=== PATIENT | female | born 1985 | race Caucasian/White ===

== ENCOUNTER → 2017-02-04 | Outpatient (CLI) | payer OTHER ==
--- NOTE | 2017-02-04 19:34 | MR ---
EXAMINATION TYPE: MR lumbar spine wo con DATE OF EXAM: 02/04/2017 COMPARISON: NONE HISTORY: Pain LOW BACK SINCE 2010 TECHNIQUE: T1 and T2 axial and sagittal images of the lumbar spine are submitted. FINDINGS: There is no abnormal signal seen within the visualized spinal cord or paraspinal soft tissu es. At L1-2 there is no degenerative disc disease, disc herniation, or canal stenosis. No foraminal encro achment. At L2-3 there is no degenerative disc disease, disc herniation, or canal stenosis. No foraminal encro achment. At L3-4 there is no degenerative disc disease, disc herniation, or canal stenosis. No foraminal encro achment. At L4-5 there is 7 mm synovial cyst external to the spinal canal related to left facet joint with mod erate facet arthropathy and ligamentum flavum hypertrophy. Broad-based central disc protrusion result s in moderate effacement of thecal sac and mild central stenosis. Mild bilateral foraminal encroachme nt. At L5-S1 there is disc desiccation and facet arthropathy with a focal left paracentral disc broad-bas ed herniation resulting in moderate anterior thecal sac compression. Neural foramina remain patent. IMPRESSION: 1. Focal broad-based left paracentral disc herniation L5-S1 with moderate thecal sac compression but no significant foraminal encroachment. 2. Broad-based central disc protrusion or small herniation L4-L5 with moderate effacement of thecal s ac. Hypertrophic change of the ligamentum flavum and facets result in mild central stenosis. 3. Small 7 mm synovial cyst left facet joint L4-L5 external to the spinal canal.
== END | disposition home or self-care (01) ==
LOC: RADMRIMAIN 17:58
DX: M48.061 Spinal stenosis, lumbar region without neurogenic claudication (principal); M51.17 Intervertebral disc disorders with radiculopathy, lumbosacral region; M24.28 Disorder of ligament, vertebrae; M71.38 Other bursal cyst, other site
CPT/HCPCS: 72148

== ENCOUNTER 2023-03-09 17:46 | Emergency (ER) | payer OTHER ==
[2023-03-09 18:06] VITALS: RESP 18
[2023-03-09] MEDS ORDERED: SULFAMETH-TMP DS STARTER PACK 2 TAB BTL PO STA (18:22)
[2023-03-09] MEDS ORDERED: ACET/COD 300 MG/30 MG STARTER PACK 6 TAB BTL PO STA (18:22)
[2023-03-09] MEDS ORDERED: CEPHALEXIN 500MG STARTER PACK 4 CAP BTL PO STA (18:22)
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
[2023-03-09 18:51] VITALS: BP 135/84; PULSE 78; TEMP 98.2
== END 2023-03-09 18:50 | disposition home or self-care (01) ==
LOC: EC 17:46
DX: L02.211 Cutaneous abscess of abdominal wall (principal); F12.90 Cannabis use, unspecified, uncomplicated; F17.200 Nicotine dependence, unspecified, uncomplicated; Z90.49 Acquired absence of other specified parts of digestive tract
CPT/HCPCS: 99283

== ENCOUNTER 2023-05-18 18:04 | Emergency (ER) | payer OTHER ==
[2023-05-18 19:44] LABS: Appearance,Urine Cloudy (Clear); Bacteria,Urine Few /hpf; Bilirubin,Urine Negative (Negative); Blood,Urine Trace (Negative); Color,Urine Colorless; Glucose,Urine (UA) Negative (Negative); Ketones,Urine Negative (Negative); Leukocyte Esterase,Urine Large (Negative); Mucus,Urine Rare /hpf; Nitrite,Urine Positive (Negative); Protein,Urine Trace (Negative); RBC,Urine 15 /hpf (0-5); Specific Gravity,Urine 1.015 (1.001-1.035); Squamous Epithelial Cell,Urine 32 /hpf (0-4); Urobilinogen,Urine <2.0 mg/dL (<2.0); WBC,Urine 127 /hpf (0-5)
[2023-05-18] MEDS ORDERED: ACETAMINOPHEN TAB 500 MG TAB PO STA (21:02)
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
--- NOTE | 2023-05-18 21:58 | US ---
EXAMINATION TYPE: US OB >= 14 wk twins DATE OF EXAM: 05/18/2023 COMPARISON: NONE CLINICAL INDICATION: Female, 37 years old with history of 17 wks . suprapubic pain; 17 weeks pg. Diagnosed with a UTI today GESTATIONAL AGE / DATING Physician Established: (17 weeks/2 days) EDC: 10/24/23 Dates by First Scan: No prev. Dates by Current Scan for Baby A: (17 weeks/2 days) EDC: 10/24/23 Dates by Current Scan for Baby B: (17 weeks/2 days) EDC: 10/24/23 GENERAL TWIN SURVEY TWIN A LOCATION in regards to maternal abd: Breech TWIN B LOCATION in regards to maternal abd: Breech MEMBRANE SEEN: Yes CERVICAL LENGTH (transabdominal; norm > 3.0cm): 3.4 cm MATERNAL WALL MEASUREMENT: 3.9 cm from skin to anterior uterine wall (if exam limited due to body hab itus). TWIN A: SURVEY/BIOMETRY PLACENTA: Anterior PREVIA: No previa KAVON:? 12.7 cm?Normal PRESENTATION: Breech LIE: Oblique BPD: 3.7 cm 17 weeks / 3 days HC: 13.97 cm 17 weeks / 2 days AC: 11.6 cm 17 weeks / 2 days FL: 2.36 cm 17 weeks / 1 days ESTIMATED WEIGHT IN GRAMS: 187.1 grams ESTIMATED WEIGHT IN LBS/OZS: 0 lbs. 7 oz. WEIGHT PERCENTAGE BASED ON ESTABLISHED DATES: 41.6% HC/AC: 1.21 Normal FL/AC: 20.3 Normal HEART RATE: 174 bpm RHYTHM: Normal TWIN B: SURVEY/BIOMETRY PRESENTATION: Breech LIE: Longitudinal BPD: 3.76 cm 17 weeks / 3 days HC: 13.75 cm 17 weeks / 1 days AC: 11.4 cm 17 weeks / 1 days FL: 2.44 cm 17 weeks / 3 days ESTIMATED WEIGHT IN GRAMS: 188.2 grams ESTIMATED WEIGHT IN LBS/OZS: 0 lbs. 7 oz. WEIGHT PERCENTAGE BASED ON ESTABLISHED DATES: 43.5% HC/AC: 1.21 Normal FL/AC: 21.4 Normal HEART RATE: 155 bpm RHYTHM: Normal IMPRESSION: Single live intrauterine gestation with ultrasound age 17 weeks 3 days. Additional information as susanna cribed above.
[2023-05-18] MEDS ORDERED: CEPHALEXIN 500MG STARTER PACK 4 CAP BTL PO STA (22:38)
[2023-05-18 23:01] VITALS: BP 154/76; PULSE 84; RESP 18; TEMP 99.8
== END 2023-05-18 22:54 | disposition home or self-care (01) ==
LOC: EC 18:04
DX: O23.42 Unspecified infection of urinary tract in pregnancy, second trimester (principal); N39.0 Urinary tract infection, site not specified; O99.332 Smoking (tobacco) complicating pregnancy, second trimester; F17.290 Nicotine dependence, other tobacco product, uncomplicated; O99.322 Drug use complicating pregnancy, second trimester; F12.90 Cannabis use, unspecified, uncomplicated; Z3A.17 17 weeks gestation of pregnancy; Z20.822 Contact with and (suspected) exposure to COVID-19; Z90.49 Acquired absence of other specified parts of digestive tract
CPT/HCPCS: 76805; 76810; 81001; 87636; 99284

== ENCOUNTER 2023-07-30 18:55 | Outpatient (CLI) | payer OTHER ==
[2023-07-30] MEDS: LABETALOL 200 MG TAB PO STA (19:48)
[2023-07-30 19:50] LABS: Appearance,Urine Cloudy (Clear); Bilirubin,Urine Negative (Negative); Blood,Urine Negative (Negative); Color,Urine Colorless; Glucose,Urine (UA) Negative (Negative); Ketones,Urine Negative (Negative); Leukocyte Esterase,Urine Large (Negative); Mucus,Urine Rare /hpf; Nitrite,Urine Negative (Negative); PH, Urine 6.5 (5.0-8.0); Protein,Urine Trace (Negative); RBC,Urine 7 /hpf (0-5); Specific Gravity,Urine 1.017 (1.001-1.035); Squamous Epithelial Cell,Urine 7 /hpf (0-4); Urobilinogen,Urine <2.0 mg/dL (<2.0); WBC,Urine 33 /hpf (0-5)
[2023-07-30 20:12] LABS: Basophils % (A) 0 %; Eosinophils # (A) 0.3 k/uL (0-0.7); Eosinophils % (A) 3 %; HCT 29.5 % (34.0-46.0); HGB 9.5 gm/dL (11.4-16.0); Lymphocytes # (A) 1.4 k/uL (1.0-4.8); Lymphocytes % (A) 13 %; MCH 30.6 pg (25.0-35.0); MCHC 32.1 g/dL (31.0-37.0); MCV 95.4 fL (80.0-100.0); Mean Platelet Volume 7.5; Monocytes # (A) 0.5 k/uL (0-1.0); Monocytes % (A) 5 %; Neutrophils # (A) 8.2 k/uL (1.3-7.7); Neutrophils % (A) 77 %; Platelet Count 325 k/uL (150-450); RDW 14.9 % (11.5-15.5); WBC 10.7 k/uL (3.8-10.6)
[2023-07-30 20:25] LABS: ALT 11 U/L (4-34); AST 17 U/L (14-36); African American GFR (CKD) >90 (>60 ml/min/1.73 sqM); Blood Urea Nitrogen 4 mg/dL (7-17); LDH 158 U/L (120-246); Non-African American GFR(CKD) >90 (>60 ml/min/1.73 sqM)
[2023-07-30 20:42] LABS: Creatinine,Urine Random 74.2 mg/dL; Protein/Creatinine Ratio,Urine 0.553
[2023-07-30 20:44] LABS: Creatinine,Urine Random 73.7 mg/dL
[2023-07-30 21:40] VITALS: BP 185/84; PULSE 102; RESP 18; TEMP 97.9
--- NOTE | 2023-08-01 08:13 | P.MSEPDOC ---
Presenting Problems - Arrival Data Date of Arrival on Unit: 07/30/23 Time of Arrival on Unit: 18:55 Mode of Transport: Ambulatory - Complaint OB-Reason for Admission/Chief Complaint: PIH Comment: pt presents to triage for nausea, fatigue, swelling in her hands, fever, and elevated bp's at home of 189/101, pt has twin gest , last she had preeclampsia, was induced at 37 weeks Medical History - Information : 4 Para: 2 Term: 2 : 0 Abortions: Spontaneous or Elective: 1 Number of Living Children: 2 - Gestational Age Gestational Age by ILSA (wks/days): 27 Weeks and 6 Days - History Complications: Preeclampsia, Multiple Review of Systems - Review of Systems Constitutional: No problems Breast: No problems ENT: No problems Cardiovascular: No problems Respiratory: No problems Gastrointestinal: No problems Genitourinary: No problems Musculoskeletal: No problems Neurological: No problems Skin: No problems Vital Signs - Temperature Temperature: 97.9 F Temperature Source: Oral - Pulse Pulse Oximetery Pulse Rate: 102 Pulse Assessment Method: Pulse Oximetry - Respirations Respiratory Rate: 18 Oxygen Delivery Method: Room Air O2 Sat by Pulse Oximetry: 99 - Blood Pressure Right Arm Blood Pressure: 185/84 Blood Pressure Mean: 117 Blood Pressure Source: Automatic Cuff Medical Screen Scoring - Cervical Exam Membranes: Intact - Assessment - Baby A Baseline FHR: 155 - Assessment - Baby B Baseline FHR: 150 Physician Notification - Physician Notified Physician Notified Date: 07/30/23 Physician Notified Time: 19:24 Physician: Jenny Jiménez New Order Received: Yes - Notification Comment Comment: Verbal orders recieved at this time to send urine and PIH labs, give 200mg labetolol now and call with lab results. Maternal Triage Index - Maternal Triage Index Presenting for scheduled procedure w/no complaint: No - Stat/Priority 1 Stat Priority 1: Yes Provider Notified: Jenny Jiménez Provider Notified Time: 19:24 Criteria Met for Priority 1: pt presents to triage for nausea, fatigue, swelling in her hands, fever, and elevated bp's at home of 189/101, pt has twin gest , last she had preeclampsia, was induced at [address] Jiménez called, report given. RN reported on maternal and status. heart tones, no contractions, patient currently on 200 mg labetolol BID for PIH, hx of Pre-eclampsia with last induced at 37weeks, and elevated BP. Verbal orders recieved at this time to send urine and PIH labs, give 200mg labetolol now and call with lab results. - Urgent/Priority 2 Urgent Priority 2: No - Prompt/Priority 3 Prompt Priority 3: No - Non-Urgent/Priority 4 Non-Urgent Priority 4: No Disposition - Disposition OB Disposition: Discharge to home Discharge Date: 07/30/23 Discharge Time: 20:52 I agree with the RN Medical Screening Exam: Yes Case reviewed; plan agreed upon as documented in EMR&OBIX.: Yes Diagnosis: GESTATIONAL HTN W/O SIGNIFICANT PROTEINURIA, THIRD TRIMESTER
== END 2023-07-30 20:52 | disposition home or self-care (01) ==
LOC: FBPOP 18:55
PROVIDERS: ATTEND Obstetrics & Gynecology
DX: O99.891 Other specified diseases and conditions complicating pregnancy (principal); O14.90 Unspecified pre-eclampsia, unspecified trimester; R51.9 Headache, unspecified; M79.89 Other specified soft tissue disorders; Z3A.27 27 weeks gestation of pregnancy; O13.2 Gestational [pregnancy-induced] hypertension without significant proteinuria, second trimester
CPT/HCPCS: 36415; 82570; 84156; 82565; 83615; 84450; 84460; 84520; 84550; 85025; 81001; 87086; G0463; 99215

== ENCOUNTER 2024-02-18 09:13 | Inpatient (IN) | payer OTHER ==
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
[2024-02-18] MEDS: ACETAMINOPHEN TAB 500 MG TAB PO STA (09:43)
[2024-02-18] MEDS: SODIUM CHLORIDE 0.9% 1,000 ML IV SCH (09:44)
--- NOTE | 2024-02-18 10:00 | XR ---
EXAMINATION TYPE: XR chest 2V DATE OF EXAM: 02/18/2024 COMPARISON: 03/02/2011 HISTORY: 38-year-old female with cough and fever TECHNIQUE: AP and lateral views FINDINGS: Heart limits of normal in size. Large patient body habitus and some hypoventilatory changes limits ev aluation. Suspect some strandy perihilar atelectasis. No pleural effusion. IMPRESSION: Portable exam further limited by hypoventilatory changes and body habitus. Suspect some mild perihila r atelectasis. Otherwise, no definite acute process. [facility], , 02/18/2024 9:58 AM
[2024-02-18 10:02] LABS: Anisocytosis Slight; Basophils % (A) 0 %; Eosinophils % (A) 0 %; HCT 34.9 % (34.0-46.0); HGB 10.8 gm/dL (11.4-16.0); Hypochromasia Moderate; Lymphocytes # (A) 0.8 k/uL (1.0-4.8); Lymphocytes % (A) 4 %; MCH 26.3 pg (25.0-35.0); MCV 84.8 fL (80.0-100.0); Mean Platelet Volume 7.1; Monocytes # (A) 0.3 k/uL (0-1.0); Monocytes % (A) 1 %; Neutrophils # (A) 22.2 k/uL (1.3-7.7); Neutrophils % (A) 95 %; Platelet Count 439 k/uL (150-450); RBC 4.12 m/uL (3.80-5.40); RDW 16.1 % (11.5-15.5); WBC 23.5 k/uL (3.8-10.6)
[2024-02-18 10:18] LABS: INR 1.1 (<1.2); Partial Thromboplastin Time 26.7 sec (22.0-30.0); Prothrombin Time 11.5 sec (10.0-12.5)
[2024-02-18 10:36] LABS: African American GFR (CKD) >90 (>60 ml/min/1.73 sqM); Albumin 4.3 g/dL (3.5-5.0); Anion Gap 16 mmol/L; Blood Urea Nitrogen 12 mg/dL (7-17); Calcium 9.2 mg/dL (8.4-10.2); Carbon Dioxide 17 mmol/L (22-30); Chloride 103 mmol/L (98-107); Glucose 183 mg/dL (74-99); Non-African American GFR(CKD) >90 (>60 ml/min/1.73 sqM); Sodium 136 mmol/L (137-145); Total Bilirubin 1.6 mg/dL (0.2-1.3); Total Protein 6.8 g/dL (6.3-8.2)
[2024-02-18 10:42] LABS: ALT 44 U/L (4-34)
[2024-02-18 11:40] LABS: AST 64 U/L (14-36); Alkaline Phosphatase 76 U/L (38-126); Potassium 4.6 mmol/L (3.5-5.1)
[2024-02-18] MEDS ORDERED: GENTAMICIN PER PHARMACY MISCELLANE PRN (12:10)
[2024-02-18] MEDS ORDERED: NALOXONE 0.4 MG/ML 1 ML VIAL IV PRN (12:15)
[2024-02-18 12:18] LABS: Appearance,Urine Turbid (Clear); Bacteria,Urine Occasional /hpf; Bilirubin,Urine Negative (Negative); Blood,Urine Large (Negative); Color,Urine Yellow; Glucose,Urine (UA) Negative (Negative); Ketones,Urine Negative (Negative); Leukocyte Esterase,Urine Large (Negative); Mucus,Urine Many /hpf; Nitrite,Urine Negative (Negative); Protein,Urine 2+ (Negative); RBC,Urine 21 /hpf (0-5); Specific Gravity,Urine 1.033 (1.001-1.035); Squamous Epithelial Cell,Urine 36 /hpf (0-4); WBC,Urine 129 /hpf (0-5)
[2024-02-18] MEDS: AMPICILLIN-SULBACTAM 3 GM in SODIUM CHLORIDE 0.9% 100 ML IVPB SCH (13:01)
[2024-02-18] MEDS: SODIUM CHLORIDE 0.9% IVPB ONE (13:21)
[2024-02-18] MEDS: GENTAMICIN IVPB ONE (13:21)
[2024-02-18] MEDS ORDERED: DEXTROSE 50% SYRINGE 50 ML IVP PRN ×2 (13:54)
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
[2024-02-18] MEDS: AZITHROMYCIN 500 MG TAB PO SCH (14:11)
[2024-02-18 14:23] LABS: HCG,Qualitative Serum Not Detected
[2024-02-18 15:12] LABS: C Reactive Protein 17.5 mg/dL (<1.0)
--- NOTE | 2024-02-18 15:20 | US ---
EXAMINATION TYPE: US abdomen complete DATE OF EXAM: 02/18/2024 COMPARISON: None CLINICAL INDICATION: Female, 38 years old with history of transaminitis; TECHNIQUE: Grayscale and color Doppler imaging of the abdomen was performed. FINDINGS: EXAM MEASUREMENTS: Liver Length: 18.9 cm CBD: 0.5 cm Spleen: 12.5 cm Right Kidney: 10.8 x 4.6 x 5.9 cm Left Kidney: 9.3 x 4.3 x 5.0 cm Pancreas: Most of the pancreas is visualized. The tail is obscured by bowel gas shadowing. Liver: Mildly enlarged. Slightly coarse in echotexture. No focal lesion. Gallbladder: surgically absent Evidence for sonographic Joshi's sign: no CBD: visualized portions wnl, limited by overlying bowel gas Spleen: wnl Right Kidney: The lower pole is obscured by bowel gas shadowing. No hydronephrosis. Left Kidney: visualized portions wnl, limited by overlying bowel gas Upper IVC: wnl Abd Aorta: wnl IMPRESSION: 1. Mild hepatomegaly. There is coarsening of the hepatic echotexture suggesting nonspecific hepatocel lular disease. Clinically correlate. 2. Status post cholecystectomy. No biliary ductal dilatation. [facility], , 02/18/2024 3:18 PM
[2024-02-18 15:40] LABS: Glucose,Whole Blood 89 mg/dL (70-110)
[2024-02-18] MEDS: HEPARIN SODIUM,PORCINE 5,000 UNIT/ML 1 ML VIAL SQ SCH (16:42)
[2024-02-18] MEDS: INSULIN ASPART (NovoLOG) 100 UNIT/ML VIAL SQ SCH (18:22)
[2024-02-18 18:23] LABS: Glucose,Whole Blood 138 mg/dL (70-110)
[2024-02-18 20:57] LABS: Urine Alcohol Negative (Negative); Urine Barbiturate Negative (Negative); Urine Cocaine Negative (Negative); Urine Methadone Negative (Negative); Urine Opiates Negative (Negative); Urine Phencyclidine Negative (Negative)
[2024-02-18 21:34] LABS: Glucose,Whole Blood 97 mg/dL (70-110)
[2024-02-18] MEDS: LABETALOL 200 MG TAB PO SCH (22:05)
[2024-02-18] MEDS: ACETAMINOPHEN TAB 325 MG TAB PO PRN (22:05)
[2024-02-18 23:02] LABS: Glucose,Whole Blood 124 mg/dL (70-110)
[2024-02-18] MEDS: LORazepam 1 MG TAB PO STA (23:41)
[2024-02-19 06:11] LABS: Glucose,Whole Blood 106 mg/dL (70-110)
[2024-02-19 07:46] LABS: Anisocytosis Slight; Basophils # (A) 0.1 k/uL (0-0.2); Basophils % (A) 1 %; Eosinophils # (A) 0.1 k/uL (0-0.7); Eosinophils % (A) 1 %; HCT 31.9 % (34.0-46.0); HGB 9.9 gm/dL (11.4-16.0); Hypochromasia Moderate; Lymphocytes # (A) 1.8 k/uL (1.0-4.8); Lymphocytes % (A) 16 %; MCH 26.8 pg (25.0-35.0); MCHC 31.1 g/dL (31.0-37.0); MCV 86.1 fL (80.0-100.0); Mean Platelet Volume 8.2; Monocytes # (A) 0.4 k/uL (0-1.0); Monocytes % (A) 4 %; Neutrophils # (A) 9.1 k/uL (1.3-7.7); Neutrophils % (A) 79 %; Platelet Count 348 k/uL (150-450); RBC 3.71 m/uL (3.80-5.40); RDW 16.3 % (11.5-15.5); WBC 11.6 k/uL (3.8-10.6)
[2024-02-19 07:54] LABS: ALT 68 U/L (4-34); African American GFR (CKD) >90 (>60 ml/min/1.73 sqM); Albumin 3.5 g/dL (3.5-5.0); Anion Gap 12 mmol/L; Blood Urea Nitrogen 18 mg/dL (7-17); Calcium 8.9 mg/dL (8.4-10.2); Carbon Dioxide 17 mmol/L (22-30); Chloride 108 mmol/L (98-107); Glucose 102 mg/dL (74-99); Non-African American GFR(CKD) 89 (>60 ml/min/1.73 sqM); Sodium 137 mmol/L (137-145); Total Bilirubin 0.9 mg/dL (0.2-1.3)
[2024-02-19 08:22] LABS: Potassium 4.4 mmol/L (3.5-5.1)
[2024-02-19 08:23] LABS: AST 87 U/L (14-36); Alkaline Phosphatase 97 U/L (38-126); Magnesium 2.1 mg/dL (1.6-2.3)
[2024-02-19] MEDS: hydrOXYzine HCL 25 MG TAB PO PRN (11:47)
--- NOTE | 2024-02-19 12:42 | CA ---
Transthoracic Echo Report Name: Jennifer Luu Age: 38 Gender: F : 1985 Exam Date: 02/18/2024 13:36 Exam Location: [place] [facility] Ht (in): 67 Wt (lb): 282 Ordering Physician: Zachary John DO Attending/Referring Phys: Beef Grinder Kat Moreira RDCS Procedure CPT: Indications: Pain Cardiac Hx: Technical Quality: Technically difficult study Contrast 1: Total Dose (mL): Contrast 2: Total Dose (mL): MEASUREMENTS (Male / Female) Normal Values 2D ECHO LV Diastolic Diameter PLAX 3.2 cm 4.2 - 5.9 / 3.9 - 5.3 cm LV Systolic Diameter PLAX 2.2 cm IVS Diastolic Thickness 1.1 cm 0.6 - 1.0 / 0.6 - 0.9 cm LVPW Diastolic Thickness 1.1 cm 0.6 - 1.0 / 0.6 - 0.9 cm LV Relative Wall Thickness 0.7 RV Internal Dim ED PLAX 4.5 cm M-MODE Aortic Root Diameter MM 2.8 cm LA Systolic Diameter MM 3.1 cm LA Ao Ratio MM 1.1 AV Cusp Separation MM 2.1 cm DOPPLER AV Peak Velocity 91.9 cm/s AV Peak Gradient 3.4 mmHg AV Mean Velocity 63.9 cm/s AV Mean Gradient 1.8 mmHg AV Velocity Time Integral 13.1 cm LVOT Peak Velocity 95.1 cm/s LVOT Peak Gradient 3.6 mmHg LVOT Velocity Time Integral 14.4 cm MV Area PHT 5.8 cm??? Mitral E Point Velocity 67.9 cm/s Mitral A Point Velocity 68.6 cm/s Mitral E to A Ratio 1.0 MV Deceleration Time 130.6 ms MV E' Velocity 8.1 cm/s Mitral E to MV E' Ratio 8.3 TR Peak Velocity 298.8 cm/s TR Peak Gradient 35.7 mmHg Right Ventricular Systolic Press 37.6 mmHg FINDINGS Left Ventricle Mildly increased left ventricular wall thickness. Left ventricular cavity size normal. Flattened septum in systole consistent with right ventricle pressure overload. Septal "bounce" consistent with pulmonary hypertension. left ventricular ejection fraction is estimated at 4-505 %. Right Ventricle Severe right ventricular dilatation. Hypokinetic right ventricular free wall. Mild pulmonary hypertension. S' wave is 7cm/sec. Right Atrium Mild right atrial dilatation. Left Atrium Normal left atrial size. Mitral Valve Structurally normal mitral valve. Mild mitral annular calcification. Aortic Valve Trileaflet aortic valve. No aortic valve stenosis or regurgitation. Tricuspid Valve Structurally normal tricuspid valve. Trace to mild tricuspid regurgitation. Pulmonic Valve Structurally normal pulmonic valve. Pericardium No pericardial effusion. Thickened pericardium. Aorta Normal size aortic root and proximal ascending aorta. CONCLUSIONS Indication: Chest pain Impression Severe RV enlargement with hypokinesis of the RV free wall LVH with low normal systolic function with septal bounce Prominent posterior pericardial stripe Previewed by: Dr. Darryl Fajardo MD (Electronically Signed) Final Date: 19 February 2024 12:41
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
--- NOTE | 2024-02-19 13:51 | P.PN ---
Subjective Progress Note Date: 02/19/24 Subjective: Patient seen and examined at bedside. Patient had events of anxiety overnight. Patient was given 1 mg of Ativan which improved her anxiety. All Systems reviewed and pertinent positives and negatives noted in HPI, all other symptoms are negative Objective: Vital signs reviewed. General: non toxic, no distress, appears at stated age, morbidly obese Derm: no unusual rashes/lesions, warm Head: atraumatic, normocephalic, symmetric Eyes: EOMI, no lid lag, anicteric sclera, pupils equal round reactive to light ENT: Nose and ears atraumatic Neck: No cervical lymphadenopathy, trachea midline, supple Mouth: no lip lesion, mucus membranes moist Cardiovascular: S1S2 reg, no murmur, positive dorsalis pedis pulse bilateral, no edema Lungs: CTA bilateral, no rhonchi, no rales, no accessory muscle use Abdominal: soft, nontender to palpation, no guarding Ext: muscle strength 5 out of 5 in all 4 extremities grossly, no gross muscle atrophy, no contractures, Neuro: CN II-XI grossly intact, no gross focal neuro deficits Psych: Alert, oriented, appropriate affect, patient is anxious Data reviewed today: Labs: WBC 11.6, hemoglobin 9.9, MCV 86.1, sodium 137, potassium 4.4, chloride 108, bicarb 17, BUN 18, creatinine 0.5, glucose 102, calcium 8.9, magnesium 2.1, total bili 0.9, AST 87, ALT 68, Images: No new imaging Assessment and Plan: Patient is a 38-year-old female with PMH of hypertension presents to the ER with a complaint of sudden onset chest pain that started yesterday evening. Patient has been admitted to hospital for further evaluation of chest pain, likely atypical, rule out ACS. #Atypical chest pain, rule out ACS #Elevated troponin #Suspected myocarditis EKG shows sinus tachycardia with nonspecific ST to T wave changes. Chest x-ray shows no acute cardiopulmonary processes. Troponin trend: Decreasing with peak of 0.429 Oxygen therapy Echocardiogram shows LVEF of 45 to 50% with LVH and severe right ventricular enlargement with hypokinesis of the apical free wall and prominent posterior pericardial stripe Cardiology consulted; note reviewed: D-dimer, VQ scan and lower extremity venous study for the evaluation of thromboembolism in the setting of chronic RV dilation Continue cardiac telemetry TSH 1.24, CRP 17.5, CK 80 UDS positive for amphetamine likely false positive in the setting of labetalol #Sepsis, unlikely, unclear source #Asymptomatic bacteriuria Vital signs on arrival are: Temperature 100.3, pulse rate 113, respiratory 26, WBC 23.5 WBC improved to 11.6 and procalcitonin is negative Discontinue IV ceftriaxone and oral azithromycin Urine culture, blood culture, sputum culture and urine Legionella antigen pending Discontinue ceftriaxone 2 g IVPB every 24 hours and azithromycin 500 mg p.o. daily Decrease IV normal saline to 75 cc/h #Anion gap metabolic acidosis, likely secondary to lactic acidosis Sodium 136, potassium 4.6, chloride 103, bicarb 17 Continue monitor BMP #Hyperglycemia Accu-Chek and sliding scale insulin, monitor for hypoglycemia HbA1c 5.8 #Transaminitis, likely reactive to above Total bili total bili 0.9, AST 87, ALT 68 Abdominal ultrasound show mild hepatomegaly #Morbid obesity BMI 44.2 Structured outpatient weight management program #Chronic conditions Hypertension: Resume labetalol 200 mg p.o. twice daily DVT prophylaxis: Heparin 5000 units SQ every 8 hours CODE STATUS: Full code Discussed with: Patient Anticipated discharge place: Pending clinical course I have seen and evaluated the patient today. Discussed with the resident and agree with the residents finding and plan as documented in the resident's note. Changes highlighted in blue font. Objective - Vital Signs Vital signs: Vital Signs Temp 98.1 F 02/19/24 08:00 Pulse 77 02/19/24 08:00 Resp 16 02/19/24 08:00 BP 129/83 02/19/24 08:00 Pulse Ox 92 L 02/19/24 08:00 FiO2 Intake & Output 02/18/24 02/19/24 02/19/24 18:59 06:59 18:59 Intake Total 222 Balance 222 Weight 127.913 kg 132.4 kg Intake: Oral 222 Other: Voiding Method Toilet # Voids 2 - Labs CBC & Chem 7: 02/19/24 06:39 02/19/24 06:39 Labs: Abnormal Lab Results - Last 24 Hours (Table) 02/18/24 02/18/24 02/18/24 Range/Units 13:15 13:19 13:19 WBC (3.8-10.6) k/uL RBC (3.80-5.40) m/uL Hgb (11.4-16.0) gm/dL Hct (34.0-46.0) % RDW (11.5-15.5) % Neutrophils # (1.3-7.7) k/uL ESR 50 H (0-20) mm/Hr Chloride (98-107) mmol/L Carbon Dioxide (22-30) mmol/L BUN (7-17) mg/dL Glucose (74-99) mg/dL POC Glucose (mg/dL) (70-110) mg/dL AST (14-36) U/L ALT (4-34) U/L Troponin I (0.000-0.034) ng/mL C-Reactive Protein 17.5 H (<1.0) mg/dL Total Protein (6.3-8.2) g/dL Ur Amphetamine Screen Positive A (Negative) U Cannabinoids Screen Positive A (Negative) 02/18/24 02/18/24 02/18/24 Range/Units 13:40 16:08 18:21 WBC (3.8-10.6) k/uL RBC (3.80-5.40) m/uL Hgb (11.4-16.0) gm/dL Hct (34.0-46.0) % RDW (11.5-15.5) % Neutrophils # (1.3-7.7) k/uL ESR (0-20) mm/Hr Chloride (98-107) mmol/L Carbon Dioxide (22-30) mmol/L BUN (7-17) mg/dL Glucose (74-99) mg/dL POC Glucose (mg/dL) 138 H (70-110) mg/dL AST (14-36) U/L ALT (4-34) U/L Troponin I 0.429 H* 0.389 H* (0.000-0.034) ng/mL C-Reactive Protein (<1.0) mg/dL Total Protein (6.3-8.2) g/dL Ur Amphetamine Screen (Negative) U Cannabinoids Screen (Negative) 02/18/24 02/18/24 02/19/24 Range/Units 18:45 23:00 06:39 WBC 11.6 H (3.8-10.6) k/uL RBC 3.71 L (3.80-5.40) m/uL Hgb 9.9 L (11.4-16.0) gm/dL Hct 31.9 L (34.0-46.0) % RDW 16.3 H (11.5-15.5) % Neutrophils # 9.1 H (1.3-7.7) k/uL ESR (0-20) mm/Hr Chloride (98-107) mmol/L Carbon Dioxide (22-30) mmol/L BUN (7-17) mg/dL Glucose (74-99) mg/dL POC Glucose (mg/dL) 124 H (70-110) mg/dL AST (14-36) U/L ALT (4-34) U/L Troponin I 0.316 H* (0.000-0.034) ng/mL C-Reactive Protein (<1.0) mg/dL Total Protein (6.3-8.2) g/dL Ur Amphetamine Screen (Negative) U Cannabinoids Screen (Negative) 02/19/24 Range/Units 06:39 WBC (3.8-10.6) k/uL RBC (3.80-5.40) m/uL Hgb (11.4-16.0) gm/dL Hct (34.0-46.0) % RDW (11.5-15.5) % Neutrophils # (1.3-7.7) k/uL ESR (0-20) mm/Hr Chloride 108 H (98-107) mmol/L Carbon Dioxide 17 L (22-30) mmol/L BUN 18 H (7-17) mg/dL Glucose 102 H (74-99) mg/dL POC Glucose (mg/dL) (70-110) mg/dL AST 87 H (14-36) U/L ALT 68 H (4-34) U/L Troponin I (0.000-0.034) ng/mL C-Reactive Protein (<1.0) mg/dL Total Protein 6.0 L (6.3-8.2) g/dL Ur Amphetamine Screen (Negative) U Cannabinoids Screen (Negative)
--- NOTE | 2024-02-19 15:00 | US ---
EXAMINATION TYPE: US venous doppler duplex LE BI DATE OF EXAM: 02/19/2024 2:33 PM COMPARISON: NONE CLINICAL INDICATION: Female, 38 years old with history of enlarged RV, chronic thromboembolism; , Marco Antonio n, Swelling TECHNIQUE: The lower extremity deep venous system is examined utilizing real time linear array sonog reza with graded compression, color doppler sonography, and spectral doppler. SIDE PERFORMED: Bilateral FINDINGS: VESSELS IMAGED: Common Femoral Vein Deep Femoral Vein Greater Saphenous Vein * Femoral Vein Popliteal Vein Small Saphenous Vein * Proximal Calf Veins (* superficial vessels) Right Leg: Negative for DVT Left Leg: Negative for DVT IMPRESSION: No evidence for DVT within the bilateral lower extremities imaged from the groin to the upper calves. [facility], , 02/19/2024 2:57 PM
[2024-02-19] MEDS: HYDROcodone/APAP 5-325MG 1 EACH TAB PO PRN (15:12)
--- NOTE | 2024-02-20 08:37 | NM ---
EXAMINATION TYPE: NM pul perfusion only DATE OF EXAM: 02/20/2024 COMPARISON: Radiograph 02/18/2024 CLINICAL INDICATION: Female, 38 years old with history of enlarged RV, chronic thromboembolism; TECHNIQUE: Following administration of 4.94 mCi Tc 99m MAA. Images obtained post injection. FINDINGS: There is no discrete perfusion abnormality seen. IMPRESSION: Very low probability for pulmonary embolus. [facility], , 02/20/2024 8:34 AM
[2024-02-20 11:08] LABS: Anisocytosis Slight; Basophils % (A) 0 %; Eosinophils # (A) 0.1 k/uL (0-0.7); Eosinophils % (A) 1 %; HGB 8.7 gm/dL (11.4-16.0); Hypochromasia Moderate; Lymphocytes # (A) 1.6 k/uL (1.0-4.8); Lymphocytes % (A) 12 %; MCH 26.5 pg (25.0-35.0); MCHC 31.1 g/dL (31.0-37.0); MCV 85.2 fL (80.0-100.0); Mean Platelet Volume 6.9; Monocytes # (A) 0.4 k/uL (0-1.0); Monocytes % (A) 3 %; Neutrophils # (A) 10.9 k/uL (1.3-7.7); Neutrophils % (A) 83 %; Platelet Count 365 k/uL (150-450); RBC 3.29 m/uL (3.80-5.40); RDW 16.5 % (11.5-15.5); WBC 13.2 k/uL (3.8-10.6)
[2024-02-20 11:20] LABS: African American GFR (CKD) >90 (>60 ml/min/1.73 sqM); Anion Gap 6 mmol/L; Blood Urea Nitrogen 11 mg/dL (7-17); Calcium 8.5 mg/dL (8.4-10.2); Carbon Dioxide 17 mmol/L (22-30); Chloride 109 mmol/L (98-107); Glucose 117 mg/dL (74-99); Non-African American GFR(CKD) >90 (>60 ml/min/1.73 sqM); Potassium 4.1 mmol/L (3.5-5.1); Sodium 132 mmol/L (137-145)
[2024-02-20 11:28] LABS: ABG HCO3 21 mmol/L (21-25); ABG Oxygen Saturation 97.4 % (94-97); ABG PCO2 30 mmHg (35-45); ABG PH 7.44 (7.35-7.45); ABG PO2 88 mmHg (83-108); ABG TCO2 22 mmol/L (19-24); Allen Test Performed? Yes
--- NOTE | 2024-02-20 12:35 | P.PN ---
Subjective Progress Note Date: 02/20/24 The patient is a 38-year-old female who is currently admitted to the hospital with sepsis. Cardiology was consulted for elevated troponins. Echocardiogram reveals mildly reduced LV function with severe RV dilatation and hypokinesis of the right ventricular free wall. Patient underwent VQ scan and lower extremity Doppler which were both unremarkable, ruling out chronic pulmonary emboli. Patient states she did well overnight. No current chest pain or pressure. She believes her breathing is better than when she arrived. She is still weak and fatigued. GENERAL: Ill-appearing, well-nourished and in no acute distress. Pale NECK: Supple without JVD or thyromegaly. LUNGS: Breath sounds clear to auscultation bilaterally. Respiration equal and unlabored. No wheezes, rales or rhonchi. HEART: Regular rate and rhythm without murmurs, rubs or gallops. S1 and S2 heard. EXTREMITIES: Normal range of motion, no edema. No clubbing or cyanosis. Peripheral pulses intact and strong. TELEMETRY: Sinus rhythm overnight LABS: WBC 13.2, hemoglobin 8.7, hematocrit 28.0, platelet 365, sodium 132, potassium 4.1, BUN 11, creatinine 0.62 IMPRESSION: Sepsis, unclear source Elevated troponins, flat trend in an acute inflammatory state Mildly reduced LV function RV dilatation, chronic Hypertension Morbid obesity Elevated liver enzymes PLAN: Consult pulmonology for chronic RV dilatation Continue antihypertensive regimen Right heart cath tomorrow with Dr. Fajardo N.p.o. after midnight I am dictating on behalf of Dr Darryl Fajardo's history/physical and assessment/plan. Objective - Vital Signs Vital signs: Vital Signs Temp 98.8 F 02/20/24 11:43 Pulse 69 02/20/24 11:43 Resp 12 02/20/24 11:43 BP 109/66 02/20/24 11:43 Pulse Ox 99 02/20/24 11:43 FiO2 Intake & Output 02/19/24 02/20/24 02/20/24 18:59 06:59 18:59 Intake Total 0952 476 Balance 2552 476 Weight 134.9 kg Intake: Intake, IV Titration 1090 Amount Sodium Chloride 0.9% 1, 1040 000 ml @ 75 mls/hr IV . [id number] [facility] Rx#:[id number] 2 gm In 50 Sodium Chloride 0.9% 50 ml @ 100 mls/hr IVPB Q24HR [facility] Rx#:[id number] Oral [id number] Other: Voiding Method Toilet Toilet Toilet # Voids 2 - Labs CBC & Chem 7: 02/20/24 10:56 02/20/24 10:56 Labs: Abnormal Lab Results - Last 24 Hours (Table) 02/19/24 02/20/24 02/20/24 Range/Units 14:55 10:56 10:56 WBC 13.2 H (3.8-10.6) k/uL RBC 3.29 L (3.80-5.40) m/uL Hgb 8.7 L (11.4-16.0) gm/dL Hct 28.0 L (34.0-46.0) % RDW 16.5 H (11.5-15.5) % Neutrophils # 10.9 H (1.3-7.7) k/uL D-Dimer 1.41 H (<0.60) mg/L FEU ABG pCO2 (35-45) mmHg ABG O2 Saturation (94-97) % Hemoglobin (11.4-16.0) gm/dL Sodium 132 L (137-145) mmol/L Chloride 109 H (98-107) mmol/L Carbon Dioxide 17 L (22-30) mmol/L Glucose 117 H (74-99) mg/dL 02/20/24 Range/Units 11:18 WBC (3.8-10.6) k/uL RBC (3.80-5.40) m/uL Hgb (11.4-16.0) gm/dL Hct (34.0-46.0) % RDW (11.5-15.5) % Neutrophils # (1.3-7.7) k/uL D-Dimer (<0.60) mg/L FEU ABG pCO2 30 L (35-45) mmHg ABG O2 Saturation 97.4 H (94-97) % Hemoglobin 8.4 L (11.4-16.0) gm/dL Sodium (137-145) mmol/L Chloride (98-107) mmol/L Carbon Dioxide (22-30) mmol/L Glucose (74-99) mg/dL Microbiology - Last 24 Hours (Table) 02/18/24 09:44 Blood Culture - Preliminary Blood
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
--- NOTE | 2024-02-20 14:07 | P.PN ---
Subjective Progress Note Date: 02/20/24 Subjective: Patient seen and examined at bedside. No acute events overnight All Systems reviewed and pertinent positives and negatives noted in HPI, all other symptoms are negative Objective: Vital signs reviewed. General: non toxic, no distress, appears at stated age, morbidly obese Derm: no unusual rashes/lesions, warm Head: atraumatic, normocephalic, symmetric Eyes: EOMI, no lid lag, anicteric sclera, pupils equal round reactive to light ENT: Nose and ears atraumatic Neck: No cervical lymphadenopathy, trachea midline, supple Mouth: no lip lesion, mucus membranes moist Cardiovascular: S1S2 reg, no murmur, positive dorsalis pedis pulse bilateral, no edema Lungs: CTA bilateral, no rhonchi, no rales, no accessory muscle use Abdominal: soft, nontender to palpation, no guarding Ext: muscle strength 5 out of 5 in all 4 extremities grossly, no gross muscle atrophy, no contractures, Neuro: CN II-XI grossly intact, no gross focal neuro deficits Psych: Alert, oriented, appropriate affect, patient is anxious Data reviewed today: Labs: WBC 13.2, hemoglobin 8.7, platelet 365, sodium 132, bicarb 17, creatinine 0.60 Images: VQ scan shows very low probability of PE Assessment and Plan: Patient is a 38-year-old female with PMH of hypertension presents to the ER with a complaint of sudden onset chest pain that started yesterday evening. Patient has been admitted to hospital for further evaluation of chest pain, likely atypical, rule out ACS. #Atypical chest pain, ruled out ACS #Elevated troponin #Suspected myocarditis #Pulmonary hypertension, right ventricular dilatation #SIRS Echocardiogram shows LVEF of 45 to 50% with LVH and severe right ventricular enlargement with hypokinesis of the apical free wall and prominent posterior pericardial stripe Cardiology consulted; note reviewed: Recommending pulmonology evaluation, right heart cath tomorrow Pulmonology note reviewed, started patient back on IV ceftriaxone, patient does not have any urinary complaints, possible source could be pulmonary although procalcitonin was negative initially # Lactic acidosis, resolved #Non-anion gap metabolic acidosis, likely in the setting of normal saline Fluids discontinued, repeat BMP tomorrow #Hyperglycemia #Prediabetes, A1c 5.8 -Continue to monitor #Transaminitis, likely reactive to above Total bili total bili 0.9, AST 87, ALT 68 Abdominal ultrasound show mild hepatomegaly -Acute hepatitis panel ordered by pulmonology #Morbid obesity BMI 44.2 Structured outpatient weight management program #Chronic conditions Hypertension: Resume labetalol 200 mg p.o. twice daily DVT prophylaxis: Heparin 5000 units SQ every 8 hours CODE STATUS: Full code Discussed with: Patient Anticipated discharge place: Pending clinical course Objective - Vital Signs Vital signs: Vital Signs Temp 98.8 F 02/20/24 11:43 Pulse 69 02/20/24 14:00 Resp 12 02/20/24 14:00 BP 109/66 02/20/24 11:43 Pulse Ox 99 02/20/24 11:43 FiO2 Intake & Output 02/19/24 02/20/24 02/20/24 18:59 06:59 18:59 Intake Total 2552 2005 Balance 2552 2005 Weight 134.9 kg Intake: Intake, IV Titration 1090 650 Amount Sodium Chloride 0.9% 1, 1040 600 000 ml @ 75 mls/hr IV . [id number] [facility] Rx#:[id number] cefTRIAXone 1 gm In 50 Sodium Chloride 0.9% 50 ml @ 100 mls/hr IVPB Q24HR [facility] Rx#:[id number] cefTRIAXone 2 gm In 50 Sodium Chloride 0.9% 50 ml @ 100 mls/hr IVPB Q24HR [facility] Rx#:[id number] Oral 1462 1356 Other: Voiding Method Toilet Toilet Toilet # Voids 2 - Labs CBC & Chem 7: 02/20/24 10:56 02/20/24 10:56 Labs: Abnormal Lab Results - Last 24 Hours (Table) 02/19/24 02/20/24 02/20/24 Range/Units 14:55 10:56 10:56 WBC 13.2 H (3.8-10.6) k/uL RBC 3.29 L (3.80-5.40) m/uL Hgb 8.7 L (11.4-16.0) gm/dL Hct 28.0 L (34.0-46.0) % RDW 16.5 H (11.5-15.5) % Neutrophils # 10.9 H (1.3-7.7) k/uL D-Dimer 1.41 H (<0.60) mg/L FEU ABG pCO2 (35-45) mmHg ABG O2 Saturation (94-97) % Hemoglobin (11.4-16.0) gm/dL Sodium 132 L (137-145) mmol/L Chloride 109 H (98-107) mmol/L Carbon Dioxide 17 L (22-30) mmol/L Glucose 117 H (74-99) mg/dL 02/20/24 Range/Units 11:18 WBC (3.8-10.6) k/uL RBC (3.80-5.40) m/uL Hgb (11.4-16.0) gm/dL Hct (34.0-46.0) % RDW (11.5-15.5) % Neutrophils # (1.3-7.7) k/uL D-Dimer (<0.60) mg/L FEU ABG pCO2 30 L (35-45) mmHg ABG O2 Saturation 97.4 H (94-97) % Hemoglobin 8.4 L (11.4-16.0) gm/dL Sodium (137-145) mmol/L Chloride (98-107) mmol/L Carbon Dioxide (22-30) mmol/L Glucose (74-99) mg/dL Microbiology - Last 24 Hours (Table) 02/18/24 09:44 Blood Culture - Preliminary Blood
[2024-02-21 08:20] LABS: Hepatitis A Ab, Total Nonreactive (Nonreactive); Hepatitis B Core IgM Nonreactive (Nonreactive); Hepatitis C IgG Antibody Nonreactive (Nonreactive)
[2024-02-21 08:27] LABS: Anisocytosis Slight; Basophils % (A) 0 %; Eosinophils # (A) 0.3 k/uL (0-0.7); Eosinophils % (A) 3 %; HCT 29.4 % (34.0-46.0); Hypochromasia Marked; Lymphocytes # (A) 1.9 k/uL (1.0-4.8); Lymphocytes % (A) 23 %; MCH 26.3 pg (25.0-35.0); MCHC 30.6 g/dL (31.0-37.0); Mean Platelet Volume 7.4; Monocytes # (A) 0.5 k/uL (0-1.0); Monocytes % (A) 6 %; Neutrophils # (A) 5.4 k/uL (1.3-7.7); Neutrophils % (A) 66 %; Platelet Count 402 k/uL (150-450); RBC 3.42 m/uL (3.80-5.40); RDW 16.6 % (11.5-15.5); WBC 8.1 k/uL (3.8-10.6)
[2024-02-21 08:39] LABS: African American GFR (CKD) >90 (>60 ml/min/1.73 sqM); Anion Gap 7 mmol/L; Blood Urea Nitrogen 12 mg/dL (7-17); Calcium 8.9 mg/dL (8.4-10.2); Carbon Dioxide 23 mmol/L (22-30); Chloride 106 mmol/L (98-107); Glucose 77 mg/dL (74-99); Non-African American GFR(CKD) >90 (>60 ml/min/1.73 sqM); Potassium 4.2 mmol/L (3.5-5.1); Sodium 136 mmol/L (137-145)
--- NOTE | 2024-02-21 11:39 | P.PN ---
Subjective Progress Note Date: 02/21/24 Subjective: Patient seen and examined at bedside. No acute events overnight All Systems reviewed and pertinent positives and negatives noted in HPI, all other symptoms are negative Objective: Vital signs reviewed. General: non toxic, no distress, appears at stated age, morbidly obese Derm: no unusual rashes/lesions, warm Head: atraumatic, normocephalic, symmetric Eyes: EOMI, no lid lag, anicteric sclera, pupils equal round reactive to light ENT: Nose and ears atraumatic Neck: No cervical lymphadenopathy, trachea midline, supple Mouth: no lip lesion, mucus membranes moist Cardiovascular: S1S2 reg, no murmur, positive dorsalis pedis pulse bilateral, no edema Lungs: CTA bilateral, no rhonchi, no rales, no accessory muscle use Abdominal: soft, nontender to palpation, no guarding Ext: muscle strength 5 out of 5 in all 4 extremities grossly, no gross muscle atrophy, no contractures, Neuro: CN II-XI grossly intact, no gross focal neuro deficits Psych: Alert, oriented, appropriate affect, patient is anxious Data reviewed today: Labs: WBC 8.1, hemoglobin 9.0, MCV 86.0, platelet count 402, sodium 136, potassium 4.2, chloride 106, bicarb 23, BUN 12, creatinine 0.65, calcium 8.9 Hepatitis panel negative. Images: No new imaging. Assessment and Plan: Patient is a 38-year-old female with PMH of hypertension presents to the ER with a complaint of sudden onset chest pain that started yesterday evening. Patient has been admitted to hospital for further evaluation of chest pain, likely atypical, rule out ACS. #Atypical chest pain, ruled out ACS #Elevated troponin #Suspected myocarditis #Pulmonary hypertension, right ventricular dilatation #SIRS Echocardiogram shows LVEF of 45 to 50% with LVH and severe right ventricular enlargement with hypokinesis of the apical free wall and prominent posterior pericardial stripe Cardiology following, right heart cath today Pulmonology note reviewed, started patient back on IV ceftriaxone, patient does not have any urinary complaints, possible source could be pulmonary although procalcitonin was negative initially Patient to continue with IV ceftriaxone. #Lactic acidosis, resolved #Non-anion gap metabolic acidosis, likely in the setting of normal saline, resolved Fluids discontinued, repeat BMP tomorrow #Hyperglycemia #Prediabetes, A1c 5.8 -Continue to monitor #Transaminitis, likely reactive to above Total bili total bili 0.9, AST 87, ALT 68 Abdominal ultrasound show mild hepatomegaly -Acute hepatitis panel is nonreactive #Morbid obesity BMI 44.2 Structured outpatient weight management program #Chronic conditions Hypertension: labetalol 200 mg p.o. twice daily DVT prophylaxis: Heparin 5000 units SQ every 8 hours CODE STATUS: Full code Discussed with: Patient Anticipated discharge place: Pending clinical course I have seen and evaluated the patient today. Discussed with the resident and agree with the residents finding and plan as documented in the resident's note. Changes highlighted in blue font. Objective - Vital Signs Vital signs: Vital Signs Temp 97.7 F 02/21/24 08:30 Pulse 72 02/21/24 08:30 Resp 20 02/21/24 08:30 BP 128/81 02/21/24 08:30 Pulse Ox 98 02/21/24 08:30 FiO2 Intake & Output 02/20/24 02/21/24 02/21/24 18:59 06:59 18:59 Intake Total 2722 140 Output Total 500 Balance 2722 -500 140 Weight 134.9 kg Intake: IV 20 Invasive Line 2 10 Invasive Line 3 10 Intake, IV Titration 650 Amount Sodium Chloride 0.9% 1, 600 000 ml @ 75 mls/hr IV . [id number] [facility] Rx#:[id number] cefTRIAXone 1 gm In 50 Sodium Chloride 0.9% 50 ml @ 100 mls/hr IVPB Q24HR [facility] Rx#:[id number] Oral 2072 120 Output: Urine 500 Other: Voiding Method Toilet Toilet # Voids 1 - Labs CBC & Chem 7: 02/21/24 07:15 02/21/24 07:15 Labs: Abnormal Lab Results - Last 24 Hours (Table) 02/21/24 02/21/24 Range/Units 07:15 07:15 RBC 3.42 L (3.80-5.40) m/uL Hgb 9.0 L (11.4-16.0) gm/dL Hct 29.4 L (34.0-46.0) % MCHC 30.6 L (31.0-37.0) g/dL RDW 16.6 H (11.5-15.5) % Sodium 136 L (137-145) mmol/L Microbiology - Last 24 Hours (Table) 02/18/24 09:44 Blood Culture - Preliminary Blood
--- NOTE | 2024-02-21 11:56 | CDI ---
Documentation Clarification Form Date: 02/21/2024 11:06:42 AM From: Megha Vieyra RN CCDS Phone: [phone] Admit Date: 02/18/2024 12:15:00 PM Patient Name: Jennifer Luu Visit Number: [id number] Discharge Date: ATTENTION: The Clinical Documentation Specialists (CDI) and [facility] Coding Staff appreciate your assistance in clarifying documentation. Please respond to the clarification below the line at the bottom and electronically sign. The CDI & [facility] Coding staff will review the response and follow-up if needed. Please note: Queries are made part of the Legal Health Record. If you have any questions, please contact the author of this message via ITS. Doctor: Satish Barker Sepsis is documented HP, 02/17, but is not noted in subsequent documentation by Medicine. Clarification is requested. History/Risk Factors: 38 year old female presents to the ED with sudden onset chest pain that started yesterday evening radiation to her back and shoulders which became worse with laying down, better when sitting. Medical History: Tobacco 1pack day x 20 years, Clinical Indicators: 02/17, VSS: B/P 109/75, HR 113, Temp 100.3 F Oral, RR 26, SpO2 91% ra BMI 46.6kg 02/17, LABS: Wbc 23.6 Neutrophils 22.2, plasma lactic acid 2.8 02/17, UA: Color yellow, appearance turbid, protein 2+, blood large, leukocyte esterase large, Rbc 21, Wbc 129, wbc clumps occasional, Squamous epith cells 36, bacteria occasional urine mucus many 02/19, Blood Culture No growth after 48 Hours 02/17, EKG: sinus tachycardia with nonspecific ST to T wave changes. Treatment: 02/17 Tylenol po x1, Fluids: 02/17 0.9NS 75cc/hr; Antibiotics: 02/17 Ampicillin IVPB x 1; 02/17 02/18 Ceftriaxone 2gm IVPB Q24H; 02/19 Ceftriaxone 1gm IVPB Q24H Please clarify if the Sepsis is: [ ] Sepsis confirmed, remains under treatment related to [ ] Sepsis is ruled out [ x ] Other condition, please specify ___SIRS ___ [ ] Unable to determine (Template Last Revised: June 2020) MTDD
--- NOTE | 2024-02-21 13:57 | P.PN ---
Subjective Progress Note Date: 02/21/24 This is a 38-year-old female patient with history of obesity, hypertension and maintained on labetalol 200 mg twice daily in the outpatient setting. No other significant past medical history. She did have twins back in August of this year without any complications. She presented to the emergency room with concerns regarding anxiety, some chest discomfort and shortness of breath. Chest x-ray showed hypoventilatory changes and body habitus. Possible perihilar atelectasis. Otherwise no acute process. Ultrasound of the abdomen revealed mild hepatomegaly. There is coarsening of the hepatic echotexture suggesting nonspecific hepatocellular disease. Status postcholecystectomy. Dopplers of the lower extremities were negative for DVT. Perfusion scan revealed very low probability for pulmonary embolus. White count 13.2. Hemoglobin 8.7. Platelets 365. D-dimer 1.41. Sodium 132. Potassium 4.1. Bicarb 17. BUN 11. Creatinine 0.62. Troponins 0.429, 0.382, 0.316. C-reactive protein 17.5. Procalcitonin 0.40. AST 87. ALT 68. hCG negative. Urinalysis with large amount of blood large leukocytes and high WBCs with occasional bacteria. Urine drug screen is positive for amphetamines and cannabinoids. Viral screen negative. Arterial blood gases on room air revealed a PaO2 of 88, pCO2 of 30 and a pH of 7.44. Echocardiogram revealed severe right ventricular enlargement with hypokinesis of the RV free wall. Normal left ventricular systolic function. Mild pulmonary hypertension with an RVSP of 37.6 mmHg. Heidi on the selective care unit. She is currently sitting up in chair at the bedside. Awake and alert in no acute distress. She is maintaining good O2 saturations in the upper 90s on room air. She has been afebrile. Hemodynamically stable. The patient is seen today February 21, 2024 in follow-up on the selective care unit. She is currently sitting up in a chair at the bedside. Awake and alert in no acute distress. She is maintaining O2 saturations in the 90s on room air. Blood cultures revealed no growth to date. White count 8.1. Hemoglobin 9.0. Platelets 402. Sodium 136. Potassium 4.2. Bicarb 23. BUN 12. Creatinine 0.65. Glucose 77. Hepatitis screen negative. She is continued on ceftriaxone. Heparin for DVT prophylaxis. Plan is for right-sided heart catheterization today. Objective - Vital Signs Vital signs: Vital Signs Temp 97.9 F 02/21/24 12:00 Pulse 55 L 02/21/24 12:00 Resp 17 02/21/24 12:00 BP 107/68 02/21/24 12:00 Pulse Ox 98 02/21/24 12:00 FiO2 Intake & Output 02/20/24 02/21/24 02/21/24 18:59 06:59 18:59 Intake Total 2722 140 Output Total 500 Balance 2722 -500 140 Weight 134.9 kg Intake: IV 20 Invasive Line 2 10 Invasive Line 3 10 Intake, IV Titration 650 Amount Sodium Chloride 0.9% 1, 600 000 ml @ 75 mls/hr IV . [id number] GABE Rx#:[id number] cefTRIAXone 1 gm In 50 Sodium Chloride 0.9% 50 ml @ 100 mls/hr IVPB Q24HR GABE Rx#:[id number] Oral 2072 120 Output: Urine 500 Other: Voiding Method Toilet Toilet # Voids 1 - Exam GENERAL EXAM: Alert, obese, 38-year-old female, up in a chair, on room air, in no apparent distress. HEAD: Normocephalic. EYES: Normal reaction of pupils, equal size. NOSE: Clear with pink turbinates. THROAT: Crowding of the posterior pharynx. No erythema or exudates. NECK: No masses, no JVD. CHEST: No chest wall deformity. LUNGS: Equal air entry with no crackles, wheeze, rhonchi or dullness. CVS: S1 and S2 normal with no audible murmur, regular rhythm. ABDOMEN: Obese, normal bowel sounds, no guarding or rigidity. SPINE: No scoliosis or deformity SKIN: No rashes CENTRAL NERVOUS SYSTEM: No focal deficits, tone is normal in all 4 extremities. EXTREMITIES: There is 1+ peripheral edema. No clubbing, no cyanosis. Periphera l pulses are intact. - Labs CBC & Chem 7: 02/21/24 07:15 02/21/24 07:15 Labs: Abnormal Lab Results - Last 24 Hours (Table) 02/21/24 02/21/24 Range/Units 07:15 07:15 RBC 3.42 L (3.80-5.40) m/uL Hgb 9.0 L (11.4-16.0) gm/dL Hct 29.4 L (34.0-46.0) % MCHC 30.6 L (31.0-37.0) g/dL RDW 16.6 H (11.5-15.5) % Sodium 136 L (137-145) mmol/L Microbiology - Last 24 Hours (Table) 02/18/24 09:44 Blood Culture - Preliminary Blood Assessment and Plan Assessment: Atypical chest pain, shortness of breath in a patient found to have severe right ventricular dilatation. Hypokinetic right ventricular free wall. Mild pulmonary hypertension. Perfusion scan reveals very low probability for PE. Venous Doppler of the lower extremities negative. Plan is for right-sided heart catheterization today Troponin leak Mild transaminitis. Abdominal ultrasound revealed mild hepatomegaly. There is coarsening of the hepatic echotexture suggesting nonspecific hepatocellular disease. Hepatitis screening negative Morbid obesity, BMI 46.6 kg/m Suspected obstructive sleep apnea Anemia, current hemoglobin 8.7 Metabolic acidosis of unclear etiology Suspect urinary tract infection Urine drug screen positive for amphetamines and cannabinoids Former smoker Plan: The patient was seen and evaluated Labs and medications reviewed Plan is for right heart catheterization today Continue ceftriaxone Check a procalcitonin Urine culture pending We will continue to follow I have personally seen and examined the patient, performed the documentation and the assessment and plan as written. Number of minutes spent on the visit: 10 Dictation was produced using [employer] dictation software. Please excuse any grammatical, word or spelling errors.
[2024-02-21] MEDS: IV FLUID CONTINUATION 300 ML IV ONE (18:52)
[2024-02-21] MEDS: LIDOCAINE 1% INJ 10MG/ML (20 ML MDV) SQ ONE (19:25)
[2024-02-21] MEDS: fentaNYL (PF) 50 MCG/ML 2 ML AMP IVP ONE (19:45)
[2024-02-21 20:09] LABS: O2 Sat Blood Gas 48.2 %
[2024-02-21 20:11] LABS: O2 Sat Blood Gas 58.6 %
[2024-02-21 20:13] LABS: O2 Sat Blood Gas 47.7 %
[2024-02-21 20:15] LABS: O2 Sat Blood Gas 46.7 %
[2024-02-21 20:19] LABS: O2 Sat Blood Gas 56.1 %
[2024-02-22 08:01] VITALS: RESP 17; TEMP 98.1
[2024-02-22 08:12] LABS: Anisocytosis Slight; Basophils % (A) 0 %; Eosinophils # (A) 0.3 k/uL (0-0.7); Eosinophils % (A) 5 %; HCT 27.7 % (34.0-46.0); HGB 8.6 gm/dL (11.4-16.0); Hypochromasia Slight; Lymphocytes # (A) 1.3 k/uL (1.0-4.8); Lymphocytes % (A) 22 %; MCH 26.1 pg (25.0-35.0); MCHC 30.9 g/dL (31.0-37.0); MCV 84.7 fL (80.0-100.0); Mean Platelet Volume 7.8; Monocytes # (A) 0.4 k/uL (0-1.0); Monocytes % (A) 6 %; Neutrophils # (A) 3.8 k/uL (1.3-7.7); Neutrophils % (A) 65 %; Platelet Count 386 k/uL (150-450); RBC 3.27 m/uL (3.80-5.40); RDW 16.6 % (11.5-15.5); WBC 5.8 k/uL (3.8-10.6)
[2024-02-22 08:24] LABS: African American GFR (CKD) >90 (>60 ml/min/1.73 sqM); Anion Gap 7 mmol/L; Blood Urea Nitrogen 12 mg/dL (7-17); Calcium 8.4 mg/dL (8.4-10.2); Carbon Dioxide 22 mmol/L (22-30); Chloride 109 mmol/L (98-107); Glucose 97 mg/dL (74-99); Non-African American GFR(CKD) >90 (>60 ml/min/1.73 sqM); Potassium 4.1 mmol/L (3.5-5.1); Sodium 138 mmol/L (137-145)
[2024-02-22 12:06] VITALS: BP 111/72; PULSE 56
--- NOTE | 2024-02-22 12:42 | US ---
EXAMINATION TYPE: US lower ext pseudo artery RT DATE OF EXAM: 02/22/2024 Exam done portable COMPARISON: NONE CLINICAL INDICATION: Female, 38 years old with history of right groin tenderness, s/p cath, r/o pseud oaneury; TECHNIQUE:: Grayscale, color Doppler and spectral Doppler imaging performed of the groin, post cardia c catheter to assess for pseudoaneurysm. FINDINGS: SIDE PERFORMED: Right Color and Waveform Doppler performed to assess for the presence of pseudoaneurysm; Is there ultrasound evidence of a pseudoaneurysm: no Is there evidence of AV shunting: no Is there a fluid collection present: no IMPRESSION: No evidence for pseudoaneurysm. [facility], , 02/22/2024 12:40 PM
--- NOTE | 2024-02-22 12:45 | P.PN ---
Subjective HISTORY OF PRESENT ILLNESS: Patient examined this morning at the bedside. Patient is status post right heart cath with Dr. Fajardo yesterday. Procedure note remains pending. Patient currently denies chest pain or pressure. She denies shortness of breath. Hemoglobin this morning 8.6. She does report tenderness to her right groin this morning. PHYSICAL EXAM: VITAL SIGNS: Reviewed. GENERAL: Well-developed in no acute distress. NECK: Supple. No JVD or thyromegaly LUNGS: Respirations even and unlabored. Lungs essentially clear to auscultation bilaterally. HEART: Regular rate and rhythm. S1 and S2 heard. EXTREMITIES: Normal range of motion. No clubbing or cyanosis. Peripheral pulses intact. No lower extremity edema ASSESSMENT: Fever on admission, unknown origin Elevated troponins, type II MD, no evidence of acute coronary syndrome RV dilatation Mild pulmonary hypertension Hypertension Morbid obesity Elevated liver enzymes Anemia PLAN: Dr. Fajardo was called this morning with no answer. Awaiting call back to discuss patients RHC and plan moving forward. No procedure note dictated. Obtain US of right groin to rule out pseudoaneurysm Recommend further evaluation of anemia. Will defer to internal medicine Recommend outpatient sleep study Further recommendations pending patient course Nurse practitioner note has been reviewed by physician. Signing provider agrees with the documented findings, assessment, and plan of care documented by CARE ASSOCIATE as a scribe. Objective - Vital Signs Vital signs: Vital Signs Temp 98.1 F 02/22/24 12:00 Pulse 56 L 02/22/24 12:00 Resp 17 02/22/24 12:00 BP 111/72 02/22/24 12:00 Pulse Ox 98 02/22/24 12:00 FiO2 Intake & Output 02/21/24 02/22/24 02/22/24 18:59 06:59 18:59 Intake Total 380 540 260 Balance 380 540 260 Weight 134.5 kg Intake: IV 140 20 Invasive Line 2 20 10 Invasive Line 3 20 10 Intake, IV Titration 300 Amount IV Fluid Continuation 300 300 ml @ 0 mls/hr IV .STGAMINSIDE- MED ONE Rx#:[id number] Oral 240 240 240 Other: Voiding Method Toilet Toilet # Voids 1 - Labs CBC & Chem 7: 02/22/24 07:29 02/22/24 07:29 Labs: Abnormal Lab Results - Last 24 Hours (Table) 02/22/24 02/22/24 Range/Units 07: 07:29 RBC 3.27 L (3.80-5.40) m/uL Hgb 8.6 L (11.4-16.0) gm/dL Hct 27.7 L (34.0-46.0) % MCHC 30.9 L (31.0-37.0) g/dL RDW 16.6 H (11.5-15.5) % Chloride 109 H (98-107) mmol/L Microbiology - Last 24 Hours (Table) 02/20/24 21:10 Urine Culture - Final Urine,Clean Catch 02/18/24 09:44 Blood Culture - Preliminary Blood
--- NOTE | 2024-02-22 12:50 | P.PN ---
Subjective Progress Note Date: 02/22/24 This is a 38-year-old female patient with history of obesity, hypertension and maintained on labetalol 200 mg twice daily in the outpatient setting. No other significant past medical history. She did have twins back in August of this year without any complications. She presented to the emergency room with concerns regarding anxiety, some chest discomfort and shortness of breath. Chest x-ray showed hypoventilatory changes and body habitus. Possible perihilar atelectasis. Otherwise no acute process. Ultrasound of the abdomen revealed mild hepatomegaly. There is coarsening of the hepatic echotexture suggesting nonspecific hepatocellular disease. Status postcholecystectomy. Dopplers of the lower extremities were negative for DVT. Perfusion scan revealed very low probability for pulmonary embolus. White count 13.2. Hemoglobin 8.7. Platelets 365. D-dimer 1.41. Sodium 132. Potassium 4.1. Bicarb 17. BUN 11. Creatinine 0.62. Troponins 0.429, 0.382, 0.316. C-reactive protein 17.5. Procalcitonin 0.40. AST 87. ALT 68. hCG negative. Urinalysis with large amount of blood large leukocytes and high WBCs with occasional bacteria. Urine drug screen is positive for amphetamines and cannabinoids. Viral screen negative. Arterial blood gases on room air revealed a PaO2 of 88, pCO2 of 30 and a pH of 7.44. Echocardiogram revealed severe right ventricular enlargement with hypokinesis of the RV free wall. Normal left ventricular systolic function. Mild pulmonary hypertension with an RVSP of 37.6 mmHg. Heidi on the selective care unit. She is currently sitting up in chair at the bedside. Awake and alert in no acute distress. She is maintaining good O2 saturations in the upper 90s on room air. She has been afebrile. Hemodynamically stable. The patient is seen today February 21, 2024 in follow-up on the selective care unit. She is currently sitting up in a chair at the bedside. Awake and alert in no acute distress. She is maintaining O2 saturations in the 90s on room air. Blood cultures revealed no growth to date. White count 8.1. Hemoglobin 9.0. Platelets 402. Sodium 136. Potassium 4.2. Bicarb 23. BUN 12. Creatinine 0.65. Glucose 77. Hepatitis screen negative. She is continued on ceftriaxone. Heparin for DVT prophylaxis. Plan is for right-sided heart catheterization today. The patient is seen today February 22, 2024 in follow-up on the selective care unit. She is currently resting in bed. Awake and alert in no acute distress. Maintaining O2 saturations in the 90s on room air. She has normal saline at 50 mL/h. She is currently on ceftriaxone. Heparin for DVT prophylaxis.. Results are pending. No evidence of pseudoaneurysm of the right femoral artery. White count 5.8. Hemoglobin 8.6. Platelets 386. Sodium 138. Potassium 4.1. Bicarb 22. BUN 12. Creatinine 0.66. Glucose 97. Objective - Vital Signs Vital signs: Vital Signs Temp 98.1 F 02/22/24 12:00 Pulse 56 L 02/22/24 12:00 Resp 17 02/22/24 12:00 BP 111/72 02/22/24 12:00 Pulse Ox 98 02/22/24 12:00 FiO2 Intake & Output 02/21/24 02/22/24 02/22/24 18:59 06:59 18:59 Intake Total 380 540 260 Balance 380 540 260 Weight 134.5 kg Intake: IV 140 20 Invasive Line 2 20 10 Invasive Line 3 20 10 Intake, IV Titration 300 Amount IV Fluid Continuation 300 300 ml @ 0 mls/hr IV .[employer] ONE Rx#:[id number] Oral 240 240 240 Other: Voiding Method Toilet Toilet # Voids 1 - Exam GENERAL EXAM: Alert, obese, 38-year-old female, resting in bed, on room air, in no apparent distress. HEAD: Normocephalic. EYES: Normal reaction of pupils, equal size. NOSE: Clear with pink turbinates. THROAT: Crowding of the posterior pharynx. No erythema or exudates. NECK: No masses, no JVD. CHEST: No chest wall deformity. LUNGS: Equal air entry with no crackles, wheeze, rhonchi or dullness. CVS: S1 and S2 normal with no audible murmur, regular rhythm. ABDOMEN: Obese, normal bowel sounds, no guarding or rigidity. SPINE: No scoliosis or deformity SKIN: No rashes CENTRAL NERVOUS SYSTEM: No focal deficits, tone is normal in all 4 extremities. EXTREMITIES: There is 1+ peripheral edema. No clubbing, no cyanosis. Peripheral pulses are intact. - Labs CBC & Chem 7: 02/22/24 07:29 02/22/24 07:29 Labs: Abnormal Lab Results - Last 24 Hours (Table) 02/22/24 02/22/24 Range/Units 07: 07:29 RBC 3.27 L (3.80-5.40) m/uL Hgb 8.6 L (11.4-16.0) gm/dL Hct 27.7 L (34.0-46.0) % MCHC 30.9 L (31.0-37.0) g/dL RDW 16.6 H (11.5-15.5) % Chloride 109 H (98-107) mmol/L Microbiology - Last 24 Hours (Table) 02/20/24 21:10 Urine Culture - Final Urine,Clean Catch 02/18/24 09:44 Blood Culture - Preliminary Blood Assessment and Plan Assessment: Atypical chest pain, shortness of breath in a patient found to have severe right ventricular dilatation. Hypokinetic right ventricular free wall. Mild pulmonary hypertension. Perfusion scan reveals very low probability for PE. Venous Doppler of the lower extremities negative. Right-sided heart catheterization done 02/21/2024 Troponin leak Mild transaminitis. Abdominal ultrasound revealed mild hepatomegaly. There is coarsening of the hepatic echotexture suggesting nonspecific hepatocellular disease. Hepatitis screening negative Morbid obesity, BMI 46.4 kg/m Suspected obstructive sleep apnea Anemia, current hemoglobin 8.6 Metabolic acidosis of unclear etiology Urine drug screen positive for amphetamines and cannabinoids Former smoker Plan: The patient was seen and evaluated Labs and medications reviewed Right heart catheterization results pending Urine culture reveals no growth Procalcitonin negative Discontinue ceftriaxone Heparin for DVT prophylaxis I have personally seen and examined the patient, performed the documentation and the assessment and plan as written. Number of minutes spent on the visit: 10 Dictation was produced using [employer] dictation software. Please excuse any grammatical, word or spelling errors.
--- NOTE | 2024-02-22 14:09 | P.PN ---
Subjective Progress Note Date: 02/22/24 Discharge Diagnosis: #Atypical chest pain, ruled out ACS #Elevated troponin #Suspected myocarditis #Pulmonary hypertension, right ventricular dilatation #SIRS #Lactic acidosis, resolved #Non-anion gap metabolic acidosis, likely in the setting of normal saline, resolved #Hyperglycemia #Prediabetes, A1c 5.8 #Transaminitis, likely reactive to above #Morbid obesity Hospital Course: Patient is a 38-year-old female with no significant PMH presents to the ER with a complaint of sudden onset chest pain. Laboratory evaluation in the ER shows WBC 23.5, hemoglobin 10.8, platelet count 439, neutrophil count 22.2, sodium 136, potassium 4.6, chloride 103, bicarb 17, BUN 12, creatinine 0.83. Glucose 183, total bili 1.6, AST 64, ALT 44. Lactic acid 2.8, troponin 0.242. EKG shows sinus tachycardia with nonspecific ST to T wave changes. Chest x-ray shows no acute cardiopulmonary processes. Cardiology and pulmonology were consulted. ACS was ruled out with troponin levels trending flat. Echocardiogram shows LVEF of 45 to 50% with LVH and severe right ventricular enlargement with hypokinesis of the apical free wall and prominent posterior pericardial stripe. Further workup for pulmonary hypertension was initiated. Chronic thromboembolism pulmonary hypertension was ruled out with VQ scan being negative. Patient additionally underwent right heart catheterization which showed mild pulmonary hypertension. Patient is otherwise medically optimized to be discharged and is stable. Patient to follow-up with pulmonology and cardiology for sleep study and cardiac MRI respectively. Patient advised to follow-up with PCP. Discharge instructions: Patient is advised to follow-up with PCP, cardiology and pulmonology. Patient is advised to continue her home medications as directed. Patient provided with instructions on generalized anxiety disorder and pulmonary hypertension. Vital signs reviewed. General: non toxic, no distress, appears at stated age, morbidly obese Derm: no unusual rashes/lesions, warm Head: atraumatic, normocephalic, symmetric Eyes: EOMI, no lid lag, anicteric sclera, pupils equal round reactive to light ENT: Nose and ears atraumatic Neck: No cervical lymphadenopathy, trachea midline, supple Mouth: no lip lesion, mucus membranes moist Cardiovascular: S1S2 reg, no murmur, positive dorsalis pedis pulse bilateral, no edema Lungs: CTA bilateral, no rhonchi, no rales, no accessory muscle use Abdominal: soft, nontender to palpation, no guarding Ext: muscle strength 5 out of 5 in all 4 extremities grossly, no gross muscle atrophy, no contractures, Neuro: CN II-XI grossly intact, no gross focal neuro deficits Psych: Alert, oriented, appropriate affect, patient is anxious A total of 36 minutes of time were spent preparing this complex discharge [facility]. Patient was discharged on 02/22/2024 at 1347. I have seen and evaluated the patient today. Discussed with the resident and agree with the residents finding and plan as documented in the resident's note. Changes highlighted in blue font. Objective - Vital Signs Vital signs: Vital Signs Temp 98.1 F 02/22/24 12:00 Pulse 56 L 02/22/24 12:00 Resp 17 02/22/24 12:00 BP 111/72 02/22/24 12:00 Pulse Ox 98 02/22/24 12:00 FiO2 Intake & Output 02/21/24 02/22/24 02/22/24 18:59 06:59 18:59 Intake Total 380 540 500 Balance 380 540 500 Weight 134.5 kg Intake: IV 140 20 Invasive Line 2 20 10 Invasive Line 3 20 10 Intake, IV Titration 300 Amount IV Fluid Continuation 300 300 ml @ 0 mls/hr IV .STK- MED ONE Rx#:[id number] Oral 240 240 480 Other: Voiding Method Toilet Toilet # Voids 1 - Labs CBC & Chem 7: 02/22/24 07:29 02/22/24 07:29 Labs: Abnormal Lab Results - Last 24 Hours (Table) 02/22/24 02/22/24 Range/Units 07:29 07:29 RBC 3.27 L (3.80-5.40) m/uL Hgb 8.6 L (11.4-16.0) gm/dL Hct 27.7 L (34.0-46.0) % MCHC 30.9 L (31.0-37.0) g/dL RDW 16.6 H (11.5-15.5) % Chloride 109 H (98-107) mmol/L Microbiology - Last 24 Hours (Table) 02/20/24 21:10 Urine Culture - Final Urine,Clean Catch 02/18/24 09:44 Blood Culture - Preliminary Blood
--- NOTE | 2024-02-22 14:48 | P.DS ---
Providers Date of admission: 02/18/24 12:15 Expected date of discharge: 02/22/24 Attending physician: Satish Barker Consults: 02/18/24 12:15 Consult Physician Stat Consulting Provider: Darryl Fajardo Consult Reason/Comments: fever, elevated trop Do you want consulting provider notified?: Yes 02/20/24 09:19 Consult Physician Stat Consulting Provider: Ramos Elaine Consult Reason/Comments: Severe RV enlargement Do you want consulting provider notified?: Yes Primary care physician: Stated None Hospital Course: Discharge Diagnosis: #Atypical chest pain, ruled out ACS #Elevated troponin #Suspected myocarditis #Pulmonary hypertension, right ventricular dilatation #SIRS #Lactic acidosis, resolved #Non-anion gap metabolic acidosis, likely in the setting of normal saline, resolved #Hyperglycemia #Prediabetes, A1c 5.8 #Transaminitis, likely reactive to above #Morbid obesity Hospital Course: Patient is a 38-year-old female with no significant PMH presents to the ER with a complaint of sudden onset chest pain. Laboratory evaluation in the ER shows WBC 23.5, hemoglobin 10.8, platelet count 439, neutrophil count 22.2, sodium 136, potassium 4.6, chloride 103, bicarb 17, BUN 12, creatinine 0.83. Glucose 183, total bili 1.6, AST 64, ALT 44. Lactic acid 2.8, troponin 0.242. EKG shows sinus tachycardia with nonspecific ST to T wave changes. Chest x-ray shows no a cute cardiopulmonary processes. Cardiology and pulmonology were consulted. ACS was ruled out with troponin levels trending flat. Echocardiogram shows LVEF of 45 to 50% with LVH and severe right ventricular enlargement with hypokinesis of the apical free wall and prominent posterior pericardial stripe. Further workup for pulmonary hypertension was initiated. Chronic thromboembolism pulmonary hy pertension was ruled out with VQ scan being negative. Patient additionally underwent right heart catheterization which showed mild pulmonary hypertension. Patient is otherwise medically optimized to be discharged and is stable. Patient to follow-up with pulmonology and cardiology for sleep study and cardiac MRI respectively. Patient advised to follow-up with PCP. Discharge instructions: Patient is advised to follow-up with PCP, cardiology and pulmonology. Patient is advised to continue her home medications as directed. Patient provided with instructions on generalized anxiety disorder and pulmonary hypertension. Vital signs reviewed. General: non toxic, no distress, appears at stated age, morbidly obese Derm: no unusual rashes/lesions, warm Head: atraumatic, normocephalic, symmetric Eyes: EOMI, no lid lag, anicteric sclera, pupils equal round reactive to light ENT: Nose and ears atraumatic Neck: No cervical lymphadenopathy, trachea midline, supple Mouth: no lip lesion, mucus membranes moist Cardiovascular: S1S2 reg, no murmur, positive dorsalis pedis pulse bilateral, no edema Lungs: CTA bilateral, no rhonchi, no rales, no accessory muscle use Abdominal: soft, nontender to palpation, no guarding Ext: muscle strength 5 out of 5 in all 4 extremities grossly, no gross muscle atrophy, no contractures, Neuro: CN II-XI grossly intact, no gross focal neuro deficits Psych: Alert, oriented, appropriate affect, patient is anxious A total of 36 minutes of time were spent preparing this complex discharge summary. Patient was discharged on 02/22/2024 at 1347. I have seen and evaluated the patient today. Discussed with the resident and agree with the residents finding and plan as documented in the resident's note. Changes highlighted in blue font. Patient Condition at Discharge: Stable Plan - Discharge Summary Discharge Rx Participant: No New Discharge Prescriptions: Continue Labetalol [Trandate] 200 mg PO BID Discharge Medication List Labetalol [Trandate] 200 mg PO BID 07/30/23 [History] Follow up Appointment(s)/Referral(s): Ramos Elaine MD [STAFF PHYSICIAN] - 03/17/24 8:30 am (need sleep study outpatient) Darryl Fajardo MD [STAFF PHYSICIAN] - 2 Weeks (office will call you with an appointment. ) [facility] [NON-STAFF] - 03/21/24 3:00 pm (with Dr Beasley ) Patient Instructions/Handouts: Generalized Anxiety Disorder (ED), Pulmonary Arterial Hypertension (DC) Activity/Diet/Wound Care/Special Instructions: Please follow up with your PCP, Cardiology, Pulmonology. You will need outpatient sleep study and Cardiac MRI. Please call to make appointment with PCP. Discharge/Stand Alone Forms: Area PCPs Discharge Disposition: HOME SELF-CARE
--- NOTE | 2024-03-16 11:26 | P.PCN ---
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 Written informed consent was obtained prior to the procedure. Under local anesthesia an 8.5 Wolof sheath was placed in the right femoral vein which was closed with a Vascade device at the end of the procedure and hemostasis was assured at the end of the procedure Via this sheath, a balloon flotation catheter was placed in the right heart and the following measurements were obtained SVC 16// Oxygen saturation 58.6% RA 18// Oxygen saturation 56.1% IVC 15// Oxygen saturation 48.2% Pulmonary artery 42/14/ Oxygen saturation 46.7% Pulmonary capillary wedge 29// Oxygen saturation 80% Right ventricle 47/3/18 Oxygen saturation 47.7% Intracardiac echo catheter performed Enlarged right ventricle Enlarged PA Mildly enlarged RA Left atrial size normal Fossa ovalis identified Bubble study performed No evidence for [id number] shunting Impression Absence of high PA pressures/absence of severe pulmonary hypertension Higher oxygen saturations in the SVC and RA Plan Consider cardiac MRI to evaluate right ventricle for right ventricular enlargement/ARVC Assess for accessory pulmonary venous drainage into the SVC
== END 2024-02-22 14:54 | disposition home or self-care (01) | DRG 192 ==
LOC: EC 09:13 → 3SCARD 12:15
PROVIDERS: ADMIT Student in an Organized Health Care Education/Training Program; ATTEND Student in an Organized Health Care Education/Training Program
PROC: 4A1239Z Monitoring of Cardiac Output, Percutaneous Approach (ICD-10-PCS; principal; 2024-02-21 21:40)
PROC: 4A023N6 Measurement of Cardiac Sampling and Pressure, Right Heart, Percutaneous Approach (ICD-10-PCS; principal; 2024-02-21 21:40)
PROC: B2141ZZ Fluoroscopy of Right Heart using Low Osmolar Contrast (ICD-10-PCS; principal; 2024-02-21 21:40)
PROC: 4A133B3 Monitoring of Arterial Pressure, Pulmonary, Percutaneous Approach (ICD-10-PCS; principal; 2024-02-21 21:40)
PROC: B244ZZ3 Ultrasonography of Right Heart, Intravascular (ICD-10-PCS; principal; 2024-02-21 21:40)
DX: I51.4 Myocarditis, unspecified (principal); E66.01 Morbid (severe) obesity due to excess calories; E87.20 Acidosis, unspecified; F41.9 Anxiety disorder, unspecified; R65.10 Systemic inflammatory response syndrome (SIRS) of non-infectious origin without acute organ dysfunction; R74.01 Elevation of levels of liver transaminase levels; I10 Essential (primary) hypertension; G47.33 Obstructive sleep apnea (adult) (pediatric); I21.A1 Myocardial infarction type 2; I27.20 Pulmonary hypertension, unspecified; J98.11 Atelectasis; R73.9 Hyperglycemia, unspecified; R73.03 Prediabetes; Z68.42 Body mass index [BMI] 45.0-49.9, adult; Z87.891 Personal history of nicotine dependence; Z20.822 Contact with and (suspected) exposure to COVID-19; Z28.21 Immunization not carried out because of patient refusal; Z79.899 Other long term (current) drug therapy
CPT/HCPCS: 36415; 36600; 71046; 76700; 78580; 80048; 80053; 80306; 81001; 82550; 82805; 82810; 83036; 83605; 83735; 84145; 84443; 84484; 84703; 85018; 85025; 85379; 85610; 85652; 85730; 86140; 86704; 86705; 86708; 86803; 87040; 87086; 87636; 93005; 93306; 93451; 93662; 93970; 93975; 94760; 96361; 96365; 96366; 96367; 96372; 99291